=== PATIENT | male | born 1985 | race American Indian/Alaskan Native ===

== ENCOUNTER 2017-03-30 11:40 | Emergency (ER) | payer OTHER ==
[2017-03-30 12:37] VITALS: BP 125/76
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
--- NOTE | 2017-03-30 13:28 | XRay Report ---
THORACIC SPINE: History: Back pain. The bones are normally mineralized with well preserved vertebral height, alignment and interspace distances. No paraspinal soft tissue widening is noted. IMPRESSION: No acute abnormality is identified.
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
== END 2017-03-30 17:55 | disposition home or self-care (01) ==
LOC: ED 11:40
DX: S39.012A Strain of muscle, fascia and tendon of lower back, initial encounter (principal); M79.1 Myalgia; V49.49XA Driver injured in collision with other motor vehicles in traffic accident, initial encounter; Y93.89 Activity, other specified; Y92.89 Other specified places as the place of occurrence of the external cause; Y99.8 Other external cause status
CPT/HCPCS: 72070; 99283

== ENCOUNTER 2019-07-11 01:14 | Emergency (ER) | payer SELFPAY ==
[2019-07-11 06:01] LABS: Mucus,Urine FEW /HPF
[2019-07-11 06:33] LABS: Bacteria,Urine 1+ /HPF (Negative); Bilirubin,Urine NEG (Negative); Blood,Urine NEG (Negative); Color,Urine Straw (Yellow); Protein,Urine <15 mg/dL mg/dL (Negative); Urobilinogen,Urine < 2.0 mg/dL (<2.0)
[2019-07-11 07:46] VITALS: BP 114/78
[2019-07-11] MEDS ORDERED: IBUPROFEN 600 MG TAB PO ONE (08:12)
--- NOTE | 2019-07-11 08:19 | Emergency Department Report ---
ED ENT HPI - General Chief complaint: Sore Throat Stated complaint: THROAT PAIN/SWELLING/FEELING HOT Time Seen by Provider: 07/11/19 08:00 Source: patient Mode of arrival: Ambulatory Limitations: No Limitations - History of Present Illness Initial comments: 34 yo male c/o sore throat with white spots started yesterday. Denies fever chills nausea vomiting and diarrhea. No known sick contacts denies sob MD complaint: sore throat - Related Data Previous Rx's Medication Instructions Recorded Last Taken Type Cyclobenzaprine [Flexeril] 10 mg PO QHS PRN #20 tablet 03/30/17 Unknown Rx Ibuprofen [Motrin] 800 mg PO Q8HR PRN #30 tablet 03/30/17 Unknown Rx Penicillin Vk [Veetids TAB] 500 mg PO BID 10 Days #20 tablet 07/11/19 Unknown Rx Allergies Allergy/AdvReac Type Severity Reaction Status Date / Time No Known Allergies Allergy Unverified 03/30/17 12:35 ED Dental HPI - General Chief complaint: Sore Throat Stated complaint: THROAT PAIN/SWELLING/FEELING HOT Time Seen by Provider: 07/11/19 08:00 Source: patient Mode of arrival: Ambulatory Limitations: No Limitations - History of Present Illness Severity: mild Consistency: constant Improves with: none Worsens with: none - Related Data Previous Rx's Medication Instructions Recorded Last Taken Type Cyclobenzaprine [Flexeril] 10 mg PO QHS PRN #20 tablet 03/30/17 Unknown Rx Ibuprofen [Motrin] 800 mg PO Q8HR PRN #30 tablet 03/30/17 Unknown Rx Penicillin Vk [Veetids TAB] 500 mg PO BID 10 Days #20 tablet 07/11/19 Unknown Rx Allergies Allergy/AdvReac Type Severity Reaction Status Date / Time No Known Allergies Allergy Unverified 03/30/17 12:35 ED Review of Systems ROS: Stated complaint: THROAT PAIN/SWELLING/FEELING HOT Other details as noted in HPI Comment: All other systems reviewed and negative Constitutional: denies: chills, fever, weakness ENT: throat pain. denies: ear pain Respiratory: cough Cardiovascular: denies: chest pain Gastrointestinal: denies: abdominal pain, nausea, vomiting Musculoskeletal: denies: back pain Skin: denies: rash Neurological: denies: headache ED Past Medical Hx - Past Medical History Previous Medical History?: No Hx Asthma: Yes - Surgical History Past Surgical History?: No - Social History Smoking Status: Current Every Day Smoker Substance Use Type: Alcohol - Medications Home Medications: Home Medications Medication Instructions Recorded Confirmed Last Taken Type Cyclobenzaprine [Flexeril] 10 mg PO QHS PRN #20 tablet 03/30/17 Unknown Rx Ibuprofen [Motrin] 800 mg PO Q8HR PRN #30 tablet 03/30/17 Unknown Rx Penicillin Vk [Veetids TAB] 500 mg PO BID 10 Days #20 tablet 07/11/19 Unknown Rx ED Physical Exam - General Limitations: No Limitations General appearance: alert, in no apparent distress - Head Head exam: Present: atraumatic - Eye Eye exam: Present: normal appearance - ENT ENT exam: Present: mucous membranes moist, TM's normal bilaterally, other (tonsils enlarged erythremic, with exudate) - Neck Neck exam: Present: normal inspection - Respiratory Respiratory exam: Present: normal lung sounds bilaterally. Absent: respiratory distress, wheezes, rales - Cardiovascular Cardiovascular Exam: Present: regular rate, normal rhythm - GI/Abdominal GI/Abdominal exam: Present: soft. Absent: distended, tenderness, guarding - Extremities Exam Extremities exam: Present: normal inspection - Back Exam Back exam: Present: normal inspection - Neurological Exam Neurological exam: Present: alert - Psychiatric Psychiatric exam: Present: normal affect - Skin Skin exam: Present: warm, dry, intact, normal color ED Course Vital Signs 07/11/19 07/11/19 07/11/19 01:35 03:20 07:46 Temperature 99.9 F H 99.9 F H 98.1 F Pulse Rate 111 H 115 H 83 Respiratory 18 18 20 Rate Blood Pressure 135/75 135/75 Blood Pressure 114/78 [Right] O2 Sat by Pulse 99 99 99 Oximetry 07/11/19 08:20 Temperature Pulse Rate Respiratory 16 Rate Blood Pressure Blood Pressure [Right] O2 Sat by Pulse Oximetry ED Medical Decision Making - Medical Decision Making exudative tonsilitis Treated with PENVK Airway patent no drooling swallows with ease Critical Care Time: No Critical care attestation.: If time is entered above; I have spent that time in minutes in the direct care of this critically ill patient, excluding procedure time. ED Disposition Clinical Impression: Tonsillitis with exudate Disposition: TO HOME OR SELFCARE Is pt being admited?: No Does the pt Need Aspirin: No Condition: Stable Instructions: Tonsillitis (ED) Additional Instructions: Rest increase water intake. STOP SMOKING CIGARETTES. Gargle with salty warm water at least 4 times a day. Soft diet until symptoms improve. Take Advil or Tylenol for pain as directed by package insert. Return to ER for difficulty swallowing. Follow up with your doctor or [facility] in 3-5 days or sooner for any worsening symptoms Prescriptions: Penicillin Vk [Veetids TAB] 500 mg PO BID 10 Days #20 tablet Referrals: PRIMARY CARE, [Primary Care Provider] - 3-5 Days Forms: Work/School Release Form(ED)
== END 2019-07-11 08:34 | disposition home or self-care (01) ==
LOC: ED 01:14
DX: J03.90 Acute tonsillitis, unspecified (principal)
CPT/HCPCS: 81001; 87116; 87430